=== PATIENT | male | born 1990 | race Caucasian/White ===

== ENCOUNTER 2020-03-31 13:13 | Emergency (ER) | payer OTHER ==
--- NOTE | 2020-03-31 13:44 | ER ---
Nurse's Notes [facility] Name: Nolan Russell Age: 30 yrs Sex: Male : 1990 Arrival Date: 03/31/2020 Time: 13:17 Bed 19 Private MD: Diagnosis: Urethritis and urethral syndrome Presentation: 03/31 13:20 Chief complaint: Patient states: "I believe I have an STD. I've got some pain and milky ss discharge." Pt reports symptoms began last night. Coronavirus screen: Client denies travel out of the [place] in the last 14 days. Ebola Screen: Patient denies exposure to infectious person. Patient denies travel to an Ebola-affected area in the 21 days before illness onset. Initial Sepsis Screen: Does the patient meet any 2 criteria? No. Patient's initial sepsis screen is negative. Does the patient have a suspected source of infection? No. Patient's initial sepsis screen is negative. Risk Assessment: Do you want to hurt yourself or someone else? Patient reports no desire to harm self or others. Onset of symptoms. 13:20 Method Of Arrival: Ambulatory ss 13:20 Acuity: ARLENE 4 ss Historical: - Allergies: 13:22 No Known Allergies; ss - Home Meds: 13:22 None [Active]; ss - PMHx: 13:22 None; ss - Immunization history:: Adult Immunizations up to date. - Social history:: Smoking status: Patient denies any tobacco usage or history of. Screenin:24 Abuse screen: Denies threats or abuse. Denies injuries from another. Nutritional sv screening: No deficits noted. Tuberculosis screening: No symptoms or risk factors identified. Fall Risk None identified. Assessment: 13:30 General: Appears in no apparent distress. comfortable, well groomed, well developed, sv Behavior is calm, cooperative, appropriate for age. Pain: Complains of pain in pelvis Pain currently is 1 out of 10 on a pain scale. Neuro: Level of Consciousness is awake, alert, obeys commands, Oriented to person, place, time, situation, Moves all extremities. Full function Gait is steady. Respiratory: Respiratory effort is even, unlabored, Respiratory pattern is regular, symmetrical. : Reports discharge, white. Derm: Skin is intact, Skin is pink, warm \\T\\ dry. Musculoskeletal: Range of motion: intact in all extremities. 14:24 Reassessment: Patient appears in no apparent distress at this time. No changes from sv previously documented assessment. Patient and/or family updated on plan of care and expected duration. Pain level reassessed. Patient is alert, oriented x 3, equal unlabored respirations, skin warm/dry/pink. Vital Signs: 13:20 BP 116 / 82; Pulse 67; Resp 15; Temp 98.3(TE); Pulse Ox 99% on R/A; Weight 97.52 kg; ss Height 6 ft. 0 in. (182.88 cm); Pain 1/10; 13:20 Body Mass Index 29.16 (97.52 kg, 182.88 cm) ED Course: 13:17 Patient arrived in ED. mr 13:22 Triage completed. ss 13:22 Arm band placed on right wrist. ss 13:23 Brigitte Angeles RN is Primary Nurse. sv 13:24 Awaiting ED provider evaluation. sv 13:24 Patient has correct armband on for positive identification. Bed in low position. Call sv light in reach. Door closed. Head of bed elevated. 13:29 Tamela Penny FNP-C is [facility]. snw 13:29 Bhaskar Bennett MD is Attending Physician. snw 14:24 No provider procedures requiring assistance completed. Patient did not have IV access sv during this emergency room visit. Administered Medications: 14:05 Drug: Rocephin (cefTRIAXone) 1 grams Route: IM; Site: left gluteus; sv 14:24 Follow up: Response: No adverse reaction sv 14:05 Drug: Zithromax 1 grams Route: PO; sv 14:24 Follow up: Response: No adverse reaction sv Outcome: 13:44 Discharge ordered by . snw 14:24 Patient left the ED. sv 14:24 Discharged to home ambulatory. sv 14:24 Condition: stable 14:24 Discharge instructions given to patient, Instructed on discharge instructions, follow up and referral plans. safe sex practices, Demonstrated understanding of instructions, follow-up care. Signatures: Brigitte Angeles, AVEL RN Tamela Penny FNP-C FNP-Seamus Oliva Arreaga Galilea Gannon RN RN
--- NOTE | 2020-03-31 13:44 | EDPHYS ---
Physician Documentation [facility] Name: Nolan Russell Age: 30 yrs Sex: Male : 1990 Arrival Date: 03/31/2020 Time: 13:17 Bed 19 Private MD: ED Physician Bhaskar Bennett HPI: 03/31 13:53 This 30 yrs old Male presents to ER via Ambulatory with complaints of STD snw Exposure. 13:53 The patient presents with urinary symptoms, dysuria. Onset: The symptoms/episode snw began/occurred gradually. Associated signs and symptoms: The patient has no apparent associated signs or symptoms. Severity of symptoms: At their worst the symptoms were mild. The patient has not experienced similar symptoms in the past. The patient has been recently seen by a physician: the patient's primary care provider, recently has rhabdomyolysis. Historical: - Allergies: 13:22 No Known Allergies; ss - Home Meds: 13:22 None [Active]; ss - PMHx: 13:22 None; ss - Immunization history:: Adult Immunizations up to date. - Social history:: Smoking status: Patient denies any tobacco usage or history of. ROS: 13:51 Constitutional: Negative for fever, chills, and weight loss, Eyes: Negative for injury, snw pain, redness, and discharge, ENT: Negative for injury, pain, and discharge, Neck: Negative for injury, pain, and swelling, Cardiovascular: Negative for chest pain, palpitations, and edema, Respiratory: Negative for shortness of breath, cough, wheezing, and pleuritic chest pain, Abdomen/GI: Negative for abdominal pain, nausea, vomiting, diarrhea, and constipation, Back: Negative for injury and pain, MS/Extremity: Negative for injury and deformity, Skin: Negative for injury, rash, and discoloration, Neuro: Negative for headache, weakness, numbness, tingling, and seizure, Psych: Negative for depression, anxiety, suicide ideation, homicidal ideation, and hallucinations. 13:51 : Positive for urinary symptoms, milky discharge/ache, no testicular pain, no lesions. Exam: 13:53 Constitutional: This is a well developed, well nourished patient who is awake, alert, snw and in no acute distress. Head/Face: Normocephalic, atraumatic. Eyes: Pupils equal round and reactive to light, extra-ocular motions intact. Lids and lashes normal. Conjunctiva and sclera are non-icteric and not injected. Cornea within normal limits. Periorbital areas with no swelling, redness, or edema. ENT: Nares patent. No nasal discharge, no septal abnormalities noted. Tympanic membranes are normal and external auditory canals are clear. Oropharynx with no redness, swelling, or masses, exudates, or evidence of obstruction, uvula midline. Mucous membranes moist. Neck: Trachea midline, no thyromegaly or masses palpated, and no cervical lymphadenopathy. Supple, full range of motion without nuchal rigidity, or vertebral point tenderness. No Meningismus. Chest/axilla: Normal chest wall appearance and motion. Nontender with no deformity. No lesions are appreciated. Cardiovascular: Regular rate and rhythm with a normal S1 and S2. No gallops, murmurs, or rubs. Normal PMI, no JVD. No pulse deficits. Respiratory: Lungs have equal breath sounds bilaterally, clear to auscultation and percussion. No rales, rhonchi or wheezes noted. No increased work of breathing, no retractions or nasal flaring. Abdomen/GI: Soft, non-tender, with normal bowel sounds. No distension or tympany. No guarding or rebound. No evidence of tenderness throughout. Back: No spinal tenderness. No costovertebral tenderness. Full range of motion. Skin: Warm, dry with normal turgor. Normal color with no rashes, no lesions, and no evidence of cellulitis. MS/ Extremity: Pulses equal, no cyanosis. Neurovascular intact. Full, normal range of motion. Neuro: Awake and alert, GCS 15, oriented to person, place, time, and situation. Cranial nerves II-XII grossly intact. Motor strength 5/5 in all extremities. Sensory grossly intact. Cerebellar exam normal. Normal gait. Psych: Awake, alert, with orientation to person, place and time. Behavior, mood, and affect are within normal limits. Vital Signs: 13:20 BP 116 / 82; Pulse 67; Resp 15; Temp 98.3(TE); Pulse Ox 99% on R/A; Weight 97.52 kg; ss Height 6 ft. 0 in. (182.88 cm); Pain 1/10; 13:20 Body Mass Index 29.16 (97.52 kg, 182.88 cm) MDM: 13:38 Patient medically screened. snw 13:52 Data reviewed: vital signs, nurses notes. Data interpreted: Pulse oximetry: on room air snw is 99 %. Interpretation: normal. Counseling: I had a detailed discussion with the patient and/or guardian regarding: the historical points, exam findings, and any diagnostic results supporting the discharge/admit diagnosis, the presence of at least one elevated blood pressure reading (>120/80) during this emergency department visit, the need for outpatient follow up, for definitive care, to return to the emergency department if symptoms worsen or persist or if there are any questions or concerns that arise at home. Special discussion: Based on the history and exam findings, there is no indication for further emergent testing or inpatient evaluation. I discussed with the patient/guardian the need to see the primary care provider for further evaluation of the symptoms. Administered Medications: 14:05 Drug: Rocephin (cefTRIAXone) 1 grams Route: IM; Site: left gluteus; sv 14:24 Follow up: Response: No adverse reaction sv 14:05 Drug: Zithromax 1 grams Route: PO; sv 14:24 Follow up: Response: No adverse reaction sv Disposition: 03/31/20 13:44 Discharged to Home. Impression: Urethritis and urethral syndrome. - Condition is Stable. - Discharge Instructions: Sexually Transmitted Disease, Urethritis, Adult, Safe Sex. - Medication Reconciliation Form, Thank You Letter, Antibiotic Education, Prescription Opioid Use form. - Follow up: Emergency Department; When: As needed; Reason: Worsening of condition. Follow up: Private Physician; When: 2 - 3 days; Reason: Recheck today's complaints, Continuance of care, Re-evaluation by your physician. Addendum: 04/02/2020 18:42 Co-signature as Attending Physician, Bhaskar Bennett MD I agree with the assessment and k dr plan of care. Signatures: Brigitte Angeles, RN RN Bhaskar Layne MD MD [facility] Tamela Penny, PEER SPECIALIST-C PEER SPECIALIST-[facility] Galilea Gannon RN RN ss Corrections: (The following items were deleted from the chart) 03/31 14:24 13:44 03/31/2020 13:44 Discharged to Home. Impression: Urethritis and urethral sv syndrome. Condition is Stable. Forms are Medication Reconciliation Form, Thank You Letter, Antibiotic Education, Prescription Opioid Use. Follow up: Emergency Department; When: As needed; Reason: Worsening of condition. Follow up: Private Physician; When: 2 - 3 days; Reason: Recheck today's complaints, Continuance of care, Re-evaluation by your physician. snw
[2020-03-31] MEDS ORDERED: LIDOCAINE 1% MPF 2 ML AMPULE ONE (14:11)
[2020-03-31] MEDS ORDERED: AZITHROMYCIN 250 MG TAB ONE (14:11)
[2020-03-31] MEDS ORDERED: CEFTRIAXONE 1000 MG/VIAL ONE (14:11)
[2020-03-31 14:43] VITALS: BP 116/82; TEMP 98.3; O2SAT 99
== END 2020-03-31 14:24 | disposition home or self-care (01) ==
LOC: ER 13:13
DX: N34.3 Urethral syndrome, unspecified (principal); N34.2 Other urethritis
CPT/HCPCS: 96372; 99283; J2001